=== PATIENT | male | born 1985 | race Caucasian/White ===

== ENCOUNTER → 2016-11-07 | Outpatient (CLI) | payer BC ==
[~2016-11-07] MED LIST: ADDERALL 20 MG20 M1 PO; ADDERALL 30 MG30 MG PO; BACLOFEN 10MG T10 MG PO; CELEBREX 200 M200 M1 PO; CIPRO500 M1 PO; COLACE 100 MG100 MG PO; DOXYCYCLINE 10100 MG PO; HYDROCODONE-APA1 TA1 PO; LIORESAL 10 MG10 MG PO; LISINOPRIL10 MG PO; MIRALAX17 GM PO; NEURONTIN300 MG PO; ONDANSETRON HCL4 M1 IV PUSH; OXYBUTYNIN 5 MG5 M1 PO; PHENERGAN 25 MG25 M1 PO; ROCEPHIN 11 GM/1001 IV
== END ==
LOC: HYPER 06:58
DX: T81.31XD Disruption of external operation (surgical) wound, not elsewhere classified, subsequent encounter (principal); G82.20 Paraplegia, unspecified; M86.9 Osteomyelitis, unspecified; I10 Essential (primary) hypertension; Y83.8 Other surgical procedures as the cause of abnormal reaction of the patient, or of later complication, without mention of misadventure at the time of the procedure; Z87.891 Personal history of nicotine dependence; Z72.89 Other problems related to lifestyle

== ENCOUNTER 2017-11-15 11:50 | Emergency (ER) | payer BC ==
[~2017-11-15] VITALS: Ht 162.6 cm; Wt 95.3 kg
[2017-11-15 12:27] LABS: ABSOLUTE NEUTROPHILS 4.2 thou/uL (1.4-8.2); BASOPHILS 0.6 % (0.0-2.0); EOSINOPHILS 4.2 % (0.0-3.0); HEMATOCRIT 41.8 % (42.0-52.0); HEMOGLOBIN 14.6 gm/dL (14.0-18.0); MCH 32.4 pg (26.0-34.0); MCHC 34.9 g/dL (28.0-37.0); MCV 92.7 fL (80.0-100.0); MONOCYTES 7.8 % (1.0-8.0); PLATELET COUNT 235 thou/uL (150-400); POLYS 67.4 % (36.0-66.0); RBC 4.51 mil/uL (4.50-6.00); RDW 13.5 % (10.5-14.5); WBC 6.2 thou/uL (4.0-11.0)
[2017-11-15] MEDS ORDERED: ZANTAC 150MG T150 MG PO (13:19)
[2017-11-15] MEDS ORDERED: HIPREX1 GM PO (13:20)
[2017-11-15] MEDS ORDERED: VYVANSE50 MG PO (13:20)
[2017-11-15] MEDS ORDERED: DIOVAN 80 MG TA80 M1 PO (13:21)
[2017-11-15] MEDS ORDERED: AZULFIDINE500 MG PO (13:22)
[2017-11-15] MEDS ORDERED: DOXYCYCLINE 10100 MG PO (13:29)
[2017-11-15 13:44] VITALS: BP 119/79
== END 2017-11-15 13:54 | disposition home or self-care (01) ==
LOC: ER 11:50
PROVIDERS: Nurse Practitioner Family
DX: L73.8 Other specified follicular disorders (principal); I10 Essential (primary) hypertension; F90.9 Attention-deficit hyperactivity disorder, unspecified type; M86.9 Osteomyelitis, unspecified; Z90.89 Acquired absence of other organs